=== PATIENT | female | born 1950 | race Native Hawaiian/Other Pacific Islander ===

== ENCOUNTER 2020-09-07 15:05 | Outpatient (CLI) | payer OTHER | END 2020-09-07 19:16 | disposition home or self-care (01) | LOC: MAMMO 15:05 | PROVIDERS: ATTEND Obstetrics & Gynecology | DX: Z12.31 Encounter for screening mammogram for malignant neoplasm of breast (principal) ==

== ENCOUNTER 2020-10-26 09:01 | Outpatient (CLI) | payer OTHER | END 2020-10-26 22:11 | disposition home or self-care (01) | LOC: CT 09:01 | PROVIDERS: ATTEND Physician Assistant | DX: R10.84 Generalized abdominal pain (principal); E55.9 Vitamin D deficiency, unspecified | CPT/HCPCS: 36415; 82565; 84520; Q9963 ==

== ENCOUNTER 2022-06-11 11:00 | Outpatient (CLI) | payer OTHER | END 2022-06-11 20:58 | disposition home or self-care (01) | LOC: MAMMO 11:00 | PROVIDERS: ATTEND Physician Assistant | DX: Z12.31 Encounter for screening mammogram for malignant neoplasm of breast (principal) ==